=== PATIENT | female | born 1930 | race Caucasian/White ===

== ENCOUNTER 2021-03-15 20:17 | Emergency (ER) | payer OTHER ==
[~2021-03-15] VITALS: Ht 154.9 cm; Wt 72.6 kg
[2021-03-15] MEDS ORDERED: LEVO-T25 MCG PO (20:36)
[2021-03-15 21:56] VITALS: BP 154/76
== END 2021-03-15 21:57 | disposition home or self-care (01) ==
LOC: M.ERS 20:17
DX: T16.1XXA Foreign body in right ear, initial encounter (principal); Z79.899 Other long term (current) drug therapy; X58.XXXA Exposure to other specified factors, initial encounter; Y93.89 Activity, other specified; Y92.89 Other specified places as the place of occurrence of the external cause; Y99.8 Other external cause status